=== PATIENT | male | born 1995 | race Caucasian/White ===

== ENCOUNTER 2016-08-19 10:35 | Emergency (ER) | payer SELFPAY ==
--- NOTE | ~2016-08-19 | ER ---
PATIENT'S NAME: SHEFALI LARSON [facility] AGE: 21 Y [address] ROOM: [place] [address] LOCATION: [facility] ADMIT DATE: 08/19/2016 ER/Outpatient Report DISCHARGE DATE: 08/19/2016 FAMILY PHYSICIAN: Martin Delarosa MD ATTENDING PHYSICIAN: Jackson White CHIEF COMPLAINT: Right posterior lower tooth pain. HISTORY OF PRESENT ILLNESS: The patient states pain has been there for a week. He finally could not take it today. He went to a dentist, they could not see him. He came here for evaluation. He states he has only been taking ibuprofen. It is difficult to chew. Denies any fevers or chills or difficulty breathing. No other abnormalities. PAST MEDICAL HISTORY: Documented on the record and reviewed by me. SOCIAL HISTORY: Documented on the record and reviewed by me. MEDICATIONS: Documented on the record and reviewed by me. ALLERGIES: DOCUMENTED ON THE RECORD AND REVIEWED BY ME. REVIEW OF SYSTEMS: All systems reviewed and negative except as noted in the HPI. PHYSICAL EXAMINATION: VITAL SIGNS: Blood pressure 128/68, pulse 84, respiratory rate is 14, temp 98.2, SpO2 is 96% on room air. Pain is rated 6/10. GENERAL: Age-appropriate male, happy, is sitting upright on exam table. No apparent pain or distress. NEUROLOGIC: Awake and alert. GCS 15. No focal deficits. No asymmetry. HEENT: Normocephalic, atraumatic. Eyes are PERRL. Oropharynx is clear. NECK: Supple. Trachea is midline. The oropharynx is notable for some tenderness at the posterior mandibular molar on the right side. No areas of fluctuance or obvious dental caries. There is no fluctuance at the floor of the mouth. No adenopathy. No appreciable swelling externally. No deviation of the tonsils. No exudates or erythema. BACK: Normal to inspection and palpation. CHEST: Even and unlabored respirations. PATIENT'S NAME: SHEFALI LARSON [facility] AGE: 21 Y [address] ROOM: [place], [place] [address] LOCATION: [facility] ADMIT DATE: 08/19/2016 ER/Outpatient Report DISCHARGE DATE: 08/19/2016 FAMILY PHYSICIAN: Martin Delarosa MD ATTENDING PHYSICIAN: Jackson White HEART: Regular rate and rhythm. SKIN: Clean, dry, and intact. EXTREMITIES: Not unremarkable. LABS AND X-RAYS: None. IMPRESSION: Tooth pain. EMERGENCY DEPARTMENT COURSE: The patient is seen and evaluated. No evidence of deep space infection or peritonsillar abscess. The patient was given penicillin and Acosta. He should follow up with a dentist as scheduled tomorrow afternoon. MD GO DAVIS/juana /[id number] d: 08/19/162044 t: 09/02/1659, OUTPATIENT REPORT
== END 2016-08-19 11:30 | disposition disaster alternative care site (69) ==
LOC: GMED 10:35
DX: K08.89 Other specified disorders of teeth and supporting structures (principal); F31.9 Bipolar disorder, unspecified; F41.9 Anxiety disorder, unspecified; F17.210 Nicotine dependence, cigarettes, uncomplicated; Z88.5 Allergy status to narcotic agent; Z79.899 Other long term (current) drug therapy

== ENCOUNTER 2016-09-23 19:58 | Emergency (ER) | payer SELFPAY ==
--- NOTE | ~2016-09-23 | ER ---
[facility] AGE: 21 Y [address] ROOM: [place] [address] LOCATION: [facility] ADMIT DATE: 09/23/2016 ER/Outpatient Report DISCHARGE DATE: 09/23/2016 FAMILY PHYSICIAN: PHYSICIAN, NO ATTENDING PHYSICIAN: Kaleb Cruz TIME OF ARRIVAL: 2003 hours. TIME OF EVALUATION: 2004 hours. CHIEF COMPLAINT: Vomiting, diarrhea, and chest pain. HISTORY OF PRESENT ILLNESS: The patient is a 21-year-old male who presents to the emergency department today with a chief complaint of vomiting, diarrhea, and chest pain. He reports it started 1 day prior to arrival. Denies any sick contacts. He reports the pain is currently 8/10 in severity, it is left-side of his chest, it is worse when touch and on deep breath it is sharp. He does report he has had nausea, vomiting x5 in the past 24 hours as well as multiple diarrhea episodes. Denies any fevers or chills. No troubles urinating. No cough. No shortness of breath. No abdominal pain. PAST MEDICAL HISTORY: Insomnia, anxiety. PAST SURGICAL HISTORY: Appendectomy. FAMILY HISTORY: Valve replacement. SOCIAL HISTORY: The patient smokes a pack per week. Denies any alcohol or illicit drug use. ALLERGIES: CODEINE. MEDICATIONS: 1. Trazodone. 2. Zoloft. PRIMARY CARE DOCTOR: PATIENT'S NAME: SHEFALI LARSON [facility] AGE: 21 Y [address] ROOM: [place] [address] LOCATION: [facility] ADMIT DATE: 09/23/2016 ER/Outpatient Report DISCHARGE DATE: 09/23/2016 FAMILY PHYSICIAN: PHYSICIAN, NO ATTENDING PHYSICIAN: Kaleb Cruz None. REVIEW OF SYSTEMS: All systems are reviewed by myself are negative with the exception of those discussed in HPI and past medical history. PHYSICAL EXAMINATION: VITAL SIGNS: Weight 87 kg. Blood pressure 139/79, pulse 89, respiratory rate 16, temperature 100.2, and oxygen saturation 97% on room air. GENERAL: The patient is a 21-year-old male, appears of stated age, in no acute distress at this time. HEENT: Head: Normocephalic, atraumatic. Pupils are equal, round, and reactive to light. Mucous membranes are moist. NECK: Supple. There is no nuchal rigidity. CARDIOVASCULAR: Regular rate and rhythm. No murmurs, rubs, or gallops. LUNGS: Clear to auscultation bilaterally. No wheezes, rales, or rhonchi. ABDOMEN: Soft, nontender, and nondistended. No rebound, rigidity, or guarding. MUSCULOSKELETAL: The patient has tenderness to palpation in the left costosternal angle. SKIN: Warm, dry. There are no rashes or lesions noted. LABORATORY DATA AND X-RAYS: Labs and x-rays are obtained. EKG is obtained, is interpreted by myself at 2012 hours, showed sinus rhythm with a rate of 91, normal axis, normal interval. No ST-elevation, ST-depression, or T-wave inversions. Two-view chest x-ray shows no acute process. CBC is unremarkable, CMP is unremarkable, LFTs normal. Lipase and amylase are normal. Urinalysis is unremarkable. IMPRESSION: 1. Nausea, vomiting. 2. Diarrhea. 3. Atypical chest pain. 4. Initial visit. EMERGENCY DEPARTMENT COURSE: The patient brought back to the examination room. Seen and evaluated by myself. IV is established. The patient is given a liter of normal saline IV as well as 4 mg of Zofran IV. The patient has not had any episodes of vomiting or diarrhea here in the emergency department. I have discussed results with the patient and his mom who is at the bedside. I have recommended close followup with primary care doctor in 2 to 3 days. We discussed the different options in the [place] area. The patient is without insurance. I have [facility] I have discussed return to care instructions including worsening symptoms or any other concerns to return PATIENT'S NAME: SHEFALI LARSON [facility] AGE: 21 Y [address] ROOM: [place], [place] [address] LOCATION: [facility] ADMIT DATE: 09/23/2016 ER/Outpatient Report DISCHARGE DATE: 09/23/2016 FAMILY PHYSICIAN: PHYSICIAN, NO ATTENDING PHYSICIAN: Kaleb Cruz to the emergency department as soon as possible. The patient is agreeable and mother is agreeable without further questions at this time. DISPOSITION: The patient is discharged home in good condition. DO SUMEET ANTONIO/juana /[id number] d: 09/24/16 0120 t: 09/24/16 1824, OUTPATIENT REPORT
[2016-09-23 20:21] LABS: BASOPHIL % 0.2 %; EOSINOPHIL # 0.1 K/uL (0.0-0.5); EOSINOPHIL % 0.5 %; HEMATOCRIT 49.1 % (37.0-53.0); HEMOGLOBIN 17.7 g/dL (12.0-17.0); IMMATURE GRANULOCYTE % 0.3 %; MCH 31.4 pg (27.0-34.0); MCV 87.2 fl (83.0-98.0); MONOCYTE # 1.2 K/uL (0.0-1.0); MONOCYTE % 11.1 %; MPV 8.4 fl (9.4-12.4); NEUTROPHIL # (ANC) 8.1 K/uL (1.4-9.0); NEUTROPHIL % 77.9 %; NRBC % 0 /100WBC (0-0.00); PLATELET COUNT 247 K/uL (150-450); RBC 5.63 M/uL (4.00-6.00); RDW-CV 12.6 % (11.9-14.6); WBC 10.4 K/uL (4.0-11.0)
[2016-09-23 20:39] LABS: ALBUMIN 4.7 gm/dL (3.5-5.0); ANION GAP 13.4 (10.0-19.0); CALCIUM 9.5 mg/dL (8.5-10.5); CREATININE 1.3 mg/dL (0.6-1.3); POTASSIUM 3.4 mMol/L (3.7-5.1); TOTAL BILIRUBIN 1.3 mg/dL (0.0-1.5); TOTAL PROTEIN 8.6 g/dL (6.0-8.4)
[2016-09-23 21:02] LABS: BILIRUBIN URINE NEGATIVE (NEGATIVE); BLOOD URINE NEGATIVE /UL (NEGATIVE); GLUCOSE URINE NEGATIVE (NEGATIVE); KETONE URINE 50 mg/dL (NEGATIVE); LEUKOCYTES URINE 25 /UL (NEGATIVE); NITRITE URINE NEGATIVE (NEGATIVE); PROTEIN URINE 30 mg/dL (NEGATIVE); SPEC GRAVITY URINE 1.025 (1.003-1.035); TURBIDITY URINE CLEAR (CLEAR); UROBILINOGEN URINE 1 mg/dL (NORMAL)
[2016-09-23 21:05] LABS: COLOR URINE AMBER (YELLOW)
[2016-09-23 21:14] LABS: RBC URINE NEGATIVE #/HPF (NEGATIVE); WBC URINE 0-2 #/HPF (NEGATIVE)
[2016-09-23 21:15] LABS: AMORPHOUS URINE 1+ (NEGATIVE); BACTERIA URINE NEGATIVE (NEGATIVE); MUCUS URINE 3+ (NEGATIVE)
== END 2016-09-23 21:40 | disposition disaster alternative care site (69) ==
LOC: GMED 19:58
PROVIDERS: Emergency Medicine
DX: R11.2 Nausea with vomiting, unspecified (principal); R07.89 Other chest pain; R19.7 Diarrhea, unspecified; F17.210 Nicotine dependence, cigarettes, uncomplicated; F41.9 Anxiety disorder, unspecified; Z90.49 Acquired absence of other specified parts of digestive tract; Z88.5 Allergy status to narcotic agent; Z79.899 Other long term (current) drug therapy
CPT/HCPCS: J2405; J7030

== ENCOUNTER 2016-09-26 12:35 | Emergency (ER) | payer SELFPAY ==
--- NOTE | ~2016-09-26 | ER ---
PATIENT'S NAME: SHEFALI BURNHAM [facility] AGE: 21 Y [address] ROOM: [place] [address] LOCATION: [facility] ADMIT DATE: 09/26/2016 ER/Outpatient Report DISCHARGE DATE: 09/26/2016 FAMILY PHYSICIAN: PHYSICIAN, NO ATTENDING PHYSICIAN: Jackson White CONTINUATION: Mr. Burnham presents for abdominal pain, back pain, nausea, vomiting, and diarrhea. HISTORY OF PRESENT ILLNESS: Symptoms have been going on for approximately 1 week. He was seen 3 days ago for same. He thinks his kidneys hurt. He denies any change with urination, it is the same on both sides. He has had fevers at home to 102 immediately prior to arrival, but is afebrile here. He states he eats a normal diet and his mom cooks bland food for him. There was no change in his symptoms today compared to several days ago. He did not fill his prescriptions since his last ER encounter. No other concerns at this time. PAST MEDICAL HISTORY: Documented on the record and reviewed by me. SOCIAL HISTORY: Documented on the record and reviewed by me. MEDICATIONS: Documented on the record and reviewed by me. ALLERGIES: DOCUMENTED ON THE RECORD AND REVIEWED BY ME. REVIEW OF SYSTEMS: All systems are reviewed and negative except as noted in the HPI. PHYSICAL EXAMINATION: VITAL SIGNS: Blood pressure 119/77, pulse 66, respiratory rate 14, temperature 98.3, and SpO2 is 96% on room air. Pain is rated 8/10. GENERAL: Age-appropriate male. No obvious pain or distress. Resting comfortably recumbent on the exam table. NEUROLOGIC: Awake and alert. GCS 15. No focal deficits. No asymmetry. HEENT: Normocephalic, atraumatic. Eyes are PERRL. Oropharynx is clear. NECK: Supple. Trachea is midline. CHEST/HEART: Regular rate and rhythm with no murmurs. LUNGS: Clear to auscultation bilateral. No rhonchi, wheezes, or rales. ABDOMEN: Soft, nontender, and nondistended. No rebound or guarding. PATIENT'S NAME: SHEFALI BURNHAM [facility] AGE: 21 Y [address] ROOM: [place] [address] LOCATION: [facility] ADMIT DATE: 09/26/2016 ER/Outpatient Report DISCHARGE DATE: 09/26/2016 FAMILY PHYSICIAN: PHYSICIAN, NO ATTENDING PHYSICIAN: Jackson White BACK: Normal to inspection and palpation. There is no spinal tenderness, paraspinal tenderness, or CVA tenderness on either side. EXTREMITIES: Warm and well perfused. No deformities or edema. SKIN: Warm, dry, intact. No rashes appreciated. LABORATORY DATA AND X-RAYS: Chest x-ray is normal per my review, unchanged compared to prior, if not actually improved. CBC: No appreciable abnormality of white count, hemoglobin, or platelets. INR is 1.1. Procalcitonin is down to 0.19. ESR is 9. CMS without appreciable electrolyte, renal, or hepatobiliary abnormalities. CRP is 2.4. Serum lactate is 1.5. IMPRESSION: Viral syndrome with gastroenteritis, unclear etiology, likely viral. EMERGENCY DEPARTMENT COURSE: The patient was seen and evaluated as above. He was given no medications. He remained comfortable with no symptoms while in the emergency department. I was able to exclude any worsening of disease as he looks better now than he did before. He has no evidence of dehydration. I am recommending he fill the prescriptions he received earlier. I gave him coupons to ensure that both could be obtained for less than 20 dollars together at [employer]. Recommend over- the-counter anti-inflammatories for pain and discomfort. Follow up with PCP as needed, return if worse. All questions answered, and the patient discharged. MD GO DAVIS/juana /[id number] d: 09/26/16 2307 t: 10/05/16 0722, OUTPATIENT REPORT
--- NOTE | ~2016-09-26 | ER ---
PATIENT'S NAME: SHEFALI BURNHAM [facility] AGE: 21 Y [address] ROOM: [place], [place] [address] LOCATION: [facility] ADMIT DATE: 09/26/2016 ER/Outpatient Report DISCHARGE DATE: 09/26/2016 FAMILY PHYSICIAN: PHYSICIAN, CHRISTA ATTENDING PHYSICIAN: Jackson White CHIEF COMPLAINT: Nausea, vomiting, abdominal pain, and back pain. HISTORY OF PRESENT ILLNESS: Mr. Burnham presents with the same symptoms he had when he was seen in the ER 3 days ago. His workup was benign at that time. By report, he was given 2 prescriptions, neither of which were filled secondary to cost. He has not been doing anything in the interim. He states his diarrhea has improved, but other symptoms are persistent. He states he has extreme pain, however, he has not demonstrated any here. His vomiting is intermittent and does appear to be associated with meals. Dictation Ends Here. Please see continuation. MD GO DAVIS/juana /[id number] d: t: 09/27/16 0923, OUTPATIENT REPORT
[2016-09-26 13:05] LABS: HEMATOCRIT 44.8 % (37.0-53.0); HEMOGLOBIN 16.5 g/dL (12.0-17.0); MCH 31.7 pg (27.0-34.0); MCHC 36.8 gm/dL (32.0-36.5); MCV 86.2 fl (83.0-98.0); MPV 8.6 fl (9.4-12.4); PLATELET COUNT 224 K/uL (150-450); RDW-CV 12.6 % (11.9-14.6)
[2016-09-26 13:12] LABS: PROTIME 11.6 SECONDS (9.8-11.4); PTT 29 SECONDS (25-32)
[2016-09-26 13:26] LABS: ALBUMIN 3.7 gm/dL (3.5-5.0); ALK PHOS 90 IU/L (33-138); ALT 47 IU/L (12-78); BLOOD UREA NITROGEN 11 mg/dL (6-24); CALCIUM 8.7 mg/dL (8.5-10.5); CHLORIDE 110 mMol/L (96-110); CO2 22 mMol/L (22-32); CREATININE 0.9 mg/dL (0.6-1.3); SODIUM 141 mMol/L (135-145); TOTAL BILIRUBIN 1.1 mg/dL (0.0-1.5); TOTAL PROTEIN 7.1 g/dL (6.0-8.4)
[2016-09-26 13:30] LABS: ANION GAP 12.7 (10.0-19.0); AST 29 IU/L (10-40); POTASSIUM 3.7 mMol/L (3.7-5.1)
[2016-09-26 13:41] LABS: ABSOLUTE NEUTROPHIL CT (ANC) 3.5 K/uL (1.4-9.0); BANDED NEUTROPHIL # 0.2 K/uL (0.0-0.1); BANDED NEUTROPHILS % 3 %; LYMPHOCYTE # 2.7 K/uL (0.8-4.0); LYMPHOCYTE % 34 %; MONOCYTE # 0.4 K/uL (0.0-1.0); SEGMENTED NEUTROPHIL # 3.3 K/uL (1.4-9.0); SEGMENTED NEUTROPHIL % 47 %
== END 2016-09-26 14:11 | disposition disaster alternative care site (69) ==
LOC: GMED 12:35
PROVIDERS: Emergency Medicine
DX: K52.9 Noninfective gastroenteritis and colitis, unspecified (principal); B34.9 Viral infection, unspecified; F17.210 Nicotine dependence, cigarettes, uncomplicated; Z88.5 Allergy status to narcotic agent; Z79.899 Other long term (current) drug therapy

== ENCOUNTER 2016-11-01 15:26 | Emergency (ER) | payer SELFPAY ==
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
== END 2016-11-01 15:47 | disposition disaster alternative care site (69) ==
LOC: GACC 15:26
DX: T22.111A Burn of first degree of right forearm, initial encounter (principal); R21 Rash and other nonspecific skin eruption; F17.210 Nicotine dependence, cigarettes, uncomplicated; F32.9 Major depressive disorder, single episode, unspecified; Z79.899 Other long term (current) drug therapy; Z88.5 Allergy status to narcotic agent; X17.XXXA Contact with hot engines, machinery and tools, initial encounter